=== PATIENT | female | born 1965 | race Caucasian/White ===

== ENCOUNTER → 2016-11-28 | Outpatient (CLI) | payer OTHER ==
[2016-11-28 16:42] LABS: RED BLOOD COUNT 4.75 M/UL (4.00-5.10); WHITE BLOOD COUNT 6.9 K/UL (4.5-11.0)
== END ==
LOC: LAB 16:14
PROVIDERS: Internal Medicine Pulmonary Disease
DX: J45.40 Moderate persistent asthma, uncomplicated (principal); J98.09 Other diseases of bronchus, not elsewhere classified
CPT/HCPCS: 36415; 71020; 82785; 85025

== ENCOUNTER → 2016-11-28 | Outpatient (CLI) | payer OTHER | LOC: HEART 5 14:10 | DX: J44.9 Chronic obstructive pulmonary disease, unspecified (principal); R94.2 Abnormal results of pulmonary function studies | CPT/HCPCS: 94060 ==

== ENCOUNTER → 2016-12-12 | Outpatient (CLI) | payer OTHER | LOC: HEART 5 14:20 | DX: J30.9 Allergic rhinitis, unspecified (principal) | CPT/HCPCS: 94060 ==

== ENCOUNTER → 2021-06-28 | Outpatient (CLI) | payer OTHER ==
[~2021-06-28] MED LIST: ALBUTEROL2.5 MG/3 M INH; ALLERGY SHOTS INJ; BACTROBAN OINT22 GM TOP; CETIRIZINE HCL10 MG PO; COMBIVENT RESPIM4 GM INH; CULTURELLE PRO PO; DICLOFENAC GEL 1% TOP; EPINEPHRIN0.3 MG/0.3 INJ; FOSAMAX70 MG PO; LIPITOR10 MG PO; METHOCARBAMOL500 MG PO; MIRALAX 119 GR119 GM PO; MOBIC15 MG PO; MUCUS ER600 MG PO; OMEPRAZOLE40 MG PO; SINGULAIR10 MG PO; SUDOGEST PO; TRELEGY ELLIPT1 EAC1 INH; TYLENOL EXTRA500 MG PO; ULTRAM50 MG PO; VITAMIN D21250 MCG PO
[2021-06-28 11:26] LABS: HEMOGLOBIN 13.9 gm/dl (12.3-15.3); RED BLOOD COUNT 4.76 M/UL (4.00-5.10); WHITE BLOOD COUNT 5.7 K/UL (4.5-11.0)
[2021-06-28 11:47] LABS: BUN/CREATININE RATIO 19 (0-10)
== END ==
LOC: OPSV2 06-20 12:00
PROVIDERS: Orthopaedic Surgery
DX: Z01.818 Encounter for other preprocedural examination (principal)
CPT/HCPCS: 36415; 80048; 85025; 93005

== ENCOUNTER → 2021-07-03 | Day surgery (SDC) | payer OTHER ==
[~2021-07-03] VITALS: Ht 152.4 cm; Wt 67.1 kg
[~2021-07-03] MED LIST changes: +ALLERGY SHOT
== END | disposition home or self-care (01) ==
LOC: OR 06-21 07:30
DX: D48.1 Neoplasm of uncertain behavior of connective and other soft tissue (principal); E78.5 Hyperlipidemia, unspecified; J45.909 Unspecified asthma, uncomplicated; K21.9 Gastro-esophageal reflux disease without esophagitis; M81.0 Age-related osteoporosis without current pathological fracture; Z20.822 Contact with and (suspected) exposure to COVID-19; Z98.51 Tubal ligation status
CPT/HCPCS: J0690; J1100; J1885; J2250; J2405; J2704; J3010; J7120